=== PATIENT | female | born 1970 | race Caucasian/White ===

== ENCOUNTER 2023-09-22 12:51 | Inpatient (IN) | payer SELFPAY ==
[2023-09-22] VITALS (73 sets, daily range): BP systolic 107–179; BP diastolic 82–143; PULSE 71–112; RESP 13–27; TEMP 36.7–38; O2SAT 97–100; BMI 38.2
--- NOTE | 2023-09-22 12:52 | ECG_ITS ---
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 Measurements Intervals [place] Rate: 105 P: 30 WA: 120 QRS: 31 QRSD: 81 T: 58 QT: 333 QTc: 441 Interpretive Statements SINUS TACHYCARDIA ABNORMAL RHYTHM ECG No previous ECG available for comparison Electronically Signed On 09-22-2023 15:20:37 WEED CONTROL INSPECTOR by Jaylene Finch M.D. [email or web address]
--- NOTE | 2023-09-22 12:52 | XRR_ITS ---
PROCEDURE INFORMATION: Exam: XR Chest Exam date and time: 09/22/2023 1:20 PM Age: 53 years old Clinical indication: Cough; Additional info: Syncope TECHNIQUE: Imaging protocol: Radiologic exam of the chest. Views: 1 view. COMPARISON: No relevant prior studies available. FINDINGS: Lungs: Unremarkable. No consolidation. Pleural spaces: Unremarkable. No pleural effusion. No pneumothorax. Heart/Mediastinum: Unremarkable. No cardiomegaly. Bones/joints: There is asymmetric anterior left 1st rib ossification. XR/XR chest 1V portable [id number] IMPRESSION: No acute findings.
--- NOTE | 2023-09-22 13:06 | ED_ITS ---
HPI - GI Bleed 2 General: Chief complaint: GI Bleed Stated complaint: Syncope Time Seen by Provider: 09/22/23 12:52 Source: patient and EMS Mode of arrival: EMS Limitations: no limitations History of Present Illness: 53-year-old female states that she had b een feeling weak today states that she passed out she is also been having a large amount of black tarry stools. He has no history of GI bleeds no history of peptic ulcer states she has been taking Advil lately due to hip pains. She is not on any blood thinners she does feel very weak and lethargic especially with standing Associated symptoms: Reports malaise and syncope; Denies abdominal pain, chills, fever(s), headache(s), nausea, rash or vomiting Review of Systems 2 Const: Reports: malaise; Denies: fever(s) or chills Eyes: Denies: blurry vision or eye discomfort ENMT: Denies: throat pain or dental pain Card: Reports: syncope; Denies: chest pain Resp: Denies: dyspnea GI: Reports: hematochezia; Denies: abdominal pain, nausea, vomiting or diarrhea Musc: Denies: neck pain or back pain Skin/Breast: Denies: rash Neuro: Denies: headache(s) Physical Exam 2 Const: COMMON NORMALS: patient oriented x3 GENERAL APPEARANCE: ill appearing HENMT: COMMON NORMALS: normocephalic and atraumatic HEAD & SCALP: n ormocephalic and atraumatic Neck/C-Spine: COMMON NORMALS: full ROM and supple Chest: COMMONS NORMALS: normal inspection of the chest and normal palpation of entire chest wall Resp: COMMON NORMALS: normal respiratory effort, No retractions, No use of accessory muscles and clear to auscultation bilaterally AUSCULTATION: clear to auscultation bilaterally Cardio: COMMON NORMALS: regular rhythm and No murmurs present (Cardio) R ATE: tachycardic RHYTHM: regular rhythm GI: COMMON NORMALS: Normal to inspection, nondistended, normoactive bowel sounds present, Soft to palpation, non-tender and no masses PALPATION: Yes Soft to palpation OTHER: Black tarry stool noted Hemoccult positive Extremity: COMMON NORMALS: normal to inspection and full ROM Neuro: COMMON NORMALS: patient oriented x3, moves all extremities and no focal motor deficits Psych: COMMON NORMALS: mental status grossly normal, Normal thought process present and cooperative THOUGHT PROCESS: Normal thought process present Skin: COMMON NORMALS: no rashes or lesions noted and no wounds GENERAL SKIN EXAM: no rashes or lesions noted Course 2 Vital Signs: Vital signs: Vital Signs Temperature 98.7 F 09/22/23 14:38 Pulse Rate 91 09/22/23 14:38 Respiratory Rate 16 09/22/23 14:38 Blood Pressure 149/105 09/22/23 14:38 Pulse Oximetry 99 09/22/23 14:38 Oxygen Delivery Me thod Room Air 09/22/23 13:01 MDM - GI Bleed Medical Decision Making Patient presents here with syncope likely from anemia from a lower GI bleed patient started on Protonix here transfused 2 units of spoke to surgeon along with hospitalist and will admit at this time her vitals here been stable. Medical Records I reviewed the patient's medical records. Lab Data I reviewed the patient's lab results. 09/22/23 13:03 09/22/23 13:03 Radiology Impressions Chest X-Ray 09/22/23 12:52 IMPRESSION: No acute findings. Laboratory Results WBC 21.33 10^3/uL (3.29-11.43) H 09/22/23 13:03 RBC 2.15 10^6/uL (3.85-5.65) L 09/22/23 13:03 Hgb 7.00 g/dL (11.27-16.99) L 09/22/23 13:03 Hct 21.4 % (36-47) L 09/22/23 13:03 MCV 99.5 fl (85-98) H 09/22/23 13:03 MCH 32.6 pg (27-33) 09/22/23 13:03 MCHC 32.7 g/dL (30-55) 09/22/23 13:03 RDW 15.0 % (12.1-15.1) 09/22/23 13:03 Plt Count 453 10^3/cmm (157-399) H 09/22/23 13:03 MPV 9.6 fL (7.4-10.4) 09/22/23 13:03 Neut % (Auto) 67.1 % 09/22/23 13:03 Lymph % (Auto) 21.3 % 09/22/23 13:03 Lea % (Auto) 7.1 % 09/22/23 13:03 Eos % (Auto) 0.5 % 09/22/23 13:03 Baso % (Auto) 0.4 % 09/22/23 13:03 Neut # (Auto) 14.30 10^3/uL (1.8-7.7) H 09/22/23 13:03 Lymph # (Auto) 4.6 10^3/uL (0.8-4.8) 09/22/23 13:03 Lea # (Auto) 1.5 10^3/uL (0.2-0.9) H 09/22/23 13:03 Eos # (Auto) 0.1 10^3/uL (0.0-0.8) 09/22/23 13:03 Baso # (Auto) 0.1 10^3/uL (0.0-0.1) 09/22/23 13:03 Nucleated RBC % (auto) 0.2 % 09/22/23 13:03 Nucleated RBCs # 0.0 /100WBC 09/22/23 13:03 PT 13.80 SECONDS (12.1-14.9) 09/22/23 13:03 INR 1.03 (0.8-1.2) 09/22/23 13:03 Sodium 134 mmol/L (136-145) L 09/22/23 13:03 Potassium 4.4 mmol/L (3.5-5.1) 09/22/23 13:03 Chloride 101 mmol/L (98-107) 09/22/23 13:03 Carbon Dioxide 21 mmol/L (22-29) L 09/22/23 13:03 Anion Gap 16.4 (5-19) 09/22/23 13:03 BUN 32 mg/dL (6-20) H 09/22/23 13:03 Creatinine 0.7 mg/dL (0.5-0.9) 09/22/23 13:03 GFR Calculation 87.9 mL/min (90-130) L 09/22/23 13:03 Glucose 170 mg/dL (65-115) H 09/22/23 13:03 Calculated Osmolality 289 mOsm/kg (285-295) 09/22/23 13:03 Calcium 8.6 mg/dL (8.5-10.5) 09/22/23 13:03 Total Bilirubin 0.2 mg/dL (0.15-1.2) 09/22/23 13:03 AST 17 U/L (0-32) 09/22/23 13:03 ALT 15 U/L (0-33) 09/22/23 13:03 Alkaline Phosphatase 76 U/L (35-105) 09/22/23 13:03 Total Protein 6.0 g/dL (6.6-8.7) L 09/22/23 13:03 Albumin 3.4 g/dL (3.5-5.2) L 09/22/23 13:03 Globulin 2.6 g/dL (1.3-4.6) 09/22/23 13:03 Blood Type AB Positive 09/22/23 13:03 Rho(D) Type Rh positive 09/22/23 13:03 Antibody Screen Negative 09/22/23 13:03 Crossmatch See Detail 09/22/23 13:03 All radiology interpretation(s) finalized by discharge EKG Data EKG 1: I personally reviewed and interpreted this EKG as follows: EKG interpretation date: 09/22/23 EKG interpretation time: 13:09 Interpretation: sinus tach hr [address] or t wave abnormalities qrs 81 qtc 394 Critical Care Time 2 Critical Care Time: Critical Care Time: Yes Total Critical Care Time: 45 Attestation: The high probability of a clinically significant, sudden or life threatening deterioration of the patient's gi system(s) required my full and direct attention, intervention and personal management. The critical care time is as shown. This time is in addition to time spent performing any reported procedures but includes the following: [x] Data and vital sign review and interpretation [x] Patient assessment, examination and intervention [x] Documentation [x] Medication orders and management Discharge Plan Discharge Patient Disposition: Admitted As Inpatient Clinical Impression: Upper gastrointestinal hemorrhage, Syncope Prescriptions: No Action ibuprofen 200 mg Tablet 200 - 600 mg PO Q6H PRN (Reason: Pain) Aleve 220 mg Capsule 440 - 660 mg PO QID PRN (Reason: Pain) Coding Level of Care Code ED [employer] for [place]
[2023-09-22 13:11] LABS: Basophils # 0.1 10^3/uL (0.0-0.1); Basophils % 0.4 %; Eosinophils # 0.1 10^3/uL (0.0-0.8); Eosinophils % 0.5 %; Hematocrit 21.4 % (36-47); Lymphocytes # 4.6 10^3/uL (0.8-4.8); Lymphocytes % 21.3 %; Mean Corpuscular HGB Conc 32.7 g/dL (30-55); Mean Corpuscular Hemoglobin 32.6 pg (27-33); Mean Corpuscular Volume 99.5 fl (85-98); Mean Platelet Volume 9.6 fL (7.4-10.4); Monocytes # 1.5 10^3/uL (0.2-0.9); Monocytes % 7.1 %; Neutrophils % 67.1 %; Nucleated Red Blood Cells % 0.2 %; Platelet Count 453 10^3/cmm (157-399); Red Blood Count 2.15 10^6/uL (3.85-5.65); White Blood Count 21.33 10^3/uL (3.29-11.43)
[2023-09-22 13:22] LABS: INR 1.03 (0.8-1.2)
[2023-09-22 13:27] LABS: Alanine Aminotransferase 15 U/L (0-33); Albumin Level 3.4 g/dL (3.5-5.2); Alkaline Phosphatase 76 U/L (35-105); Blood Urea Nitrogen 32 mg/dL (6-20); Calcium 8.6 mg/dL (8.5-10.5); Carbon Dioxide 21 mmol/L (22-29); Chloride 101 mmol/L (98-107); Globulin 2.6 g/dL (1.3-4.6); Glomerular Filtration Rate 87.9 mL/min (90-130); Glucose 170 mg/dL (65-115); Osmolality Calculated 289 mOsm/kg (285-295); Sodium 134 mmol/L (136-145); Total Bilirubin 0.2 mg/dL (0.15-1.2)
[2023-09-22 13:30] LABS: Anion Gap 16.4 (5-19); Aspartate Amino Transferase 17 U/L (0-32); Potassium 4.4 mmol/L (3.5-5.1)
[2023-09-22] MEDS: sodium chloride 0.9% 1,000 ML 999 ML IV (13:38)
[2023-09-22] MEDS: pantoprazole 40 MG in sodium chloride 0.9% (plus) 100 ML 20 MG IV ×3 (13:42→22:44)
[2023-09-22] MEDS: pantoprazole 40 mg SDV 80 MG IVP (13:42)
--- NOTE | 2023-09-22 14:31 | P.HP_ITS ---
Providers/Chief Complaint 2 Chief Complaint: Syncope History of Present Illness Riya Meek is a 53 year old female with no past medical hx except arthritis of left hip presented to hospital for weakness, dizziness, black tarry stools. She says she has been taking aleve alternated with ibuprofen in last couple of weeks due to hip pain. She did nt have insurance at first but now does and will be f/u with PCP. She had a dark colored BM last night and this AM had an incontinent BM that was black in color with dark maroon blood seen on toilet paper. She was so weak that she could not even walk to her Car. EMS has to bring her into hospital. She has never had anything like this before Patient drinks 1 pint of vodka daily, denies withdrawal seizures or the shakes . Smokes 1 PPD daily, Medications/Allergies Home Medications Medication Instructions Recorded Confirmed Last Taken Type ibuprofen 200 mg tablet 200 - 600 mg PO Q6H PRN Pain 09/22/23 09/22/23 09/21/23 History naproxen sodium 220 mg capsule 440 - 660 mg PO QID PRN Pain 09/22/23 09/22/23 09/22/23 History (Aleve) Allergies Allergy/AdvReac Type Severity Reaction Status Date / Time No Known Allergies Allergy Verified 09/22/23 13:02 Vitals/I&O/Wt Last Vital Signs Temp 98.0 F 09/22/23 13:01 Pulse 110 H 09/22/23 13:01 Resp 16 09/22/23 13:01 BP 107/82 09/22/23 13:01 Pulse Ox 100 09/22/23 13:01 O2 Del Method Room Air 09/22/23 13:01 Weight last 48 hrs Weight 104.326 kg Physical Exam 2 Narrative: NAD, laying in bed, family member at bedside s1, s2 normal GCS 15 abdomen soft, non tender, obese rounded abdomen extremities unremarkable lungs CTA b/l Data 09/23/23 10:14 09/23/23 05:44 A&P Assessment and plan (1) Upper gastrointestinal hemorrhage: (2) Hip pain: (3) Arthritis: Plan #Upper GI #Arthritis - Refrain from using NSAIDS. will place on morphine for pain for now. then switch to hydrocodone after npo status lifted - Protonix drip - EGD in AM - Gen surg consult - Transfuse 2 units PRBC - Check HnH q12H - NS 100 Cc/hr - Place on CIWA protocol - Start nicotine patch 21 g daily - check cbc q12h Full Code Attestations 2 Medical Necessity Statement*: Requires hospitalization for UGI Diagnoses Upper gastrointestinal hemorrhage K92.2 Hip pain M25.559 Arthritis M19.90
--- NOTE | 2023-09-22 18:50 | P.CONIM_ITS ---
Providers/Reason For Consult 2 Consulting Physician/Specialty*: Hospitalist Reason for Consult*: Upper GI bleed Attending Physician: Joellen Stewart MD History of Present Illness History of Present Illness Riya Meek is a 53 year old female who over the last several weeks has been having trouble with her hip. The patient been taking Aleve/ibuprofen. The patient was seen in an outside hospital where they diagnosed her with arthritis. The patient had a single black tarry stool this morning. She then became dizzy and passed out. When she woke up, she had another relatively large black tarry stool. She called her and then became dizzy and was unable to make it to the car and an ambulance was called. The patient had some dizziness. She has had no nausea or vomiting. The patient had no hematemesis. The patient has no history of GI hemorrhage/ulcers. Patient has no history of hemorrhoids. Review of Systems 2 General: Reports: 10 or more systems reviewed and unremarkable except in HPI and below Medications/Allergies Home Medications Medication Instructions Recorded Confirmed Last Taken Type ibuprofen 200 mg tablet 200 - 600 mg PO Q6H PRN Pain 09/22/23 09/22/23 09/21/23 History naproxen sodium 220 mg capsule 440 - 660 mg PO QID PRN Pain 09/22/23 09/22/23 09/22/23 History (Aleve) Allergies Allergy/AdvReac Type Severity Reaction Status Date / Time No Known Allergies Allergy Verified 09/22/23 13:02 Current Medications Generic Name Dose Route Start Last Admin Trade Name Freq PRN Reason Stop Dose Admin Pantoprazole Sodium 40 mg/ 100 mls @ 20 mls/hr 09/22/23 13:15 09/22/23 18:38 Sodium Chloride IV 8 mg/hr .Q5H BHARTI 20 mls/hr Administration 8 MG/HR Sodium Chloride 1,000 mls @ 150 mls/hr 09/22/23 14:45 09/22/23 18:27 Sodium Chloride 0.9% IV Not Given .Q6H40M BHARTI Vitals/I&O/Wt Last Vital Signs Temp 98.4 F 09/22/23 17:09 Pulse 75 09/22/23 17:42 Resp 20 H 09/22/23 17:30 BP 171/102 09/22/23 17:42 Pulse Ox 100 09/22/23 17:42 O2 Del Method Room Air 09/22/23 13:01 09/22/23 09/22/23 09/22/23 06:59 14:59 22:59 Intake Total 1000 / 1000 348.667 / 1348.667 Balance 1000 / 1000 348.667 / 1348.667 Weight last 48 hrs Weight 230 lb Physical Exam 2 Narrative: General: No acute distress HEENT: Is no cephalic atraumatic, pupils equal round reactive to light Lungs: Clear to auscultation and percussion Heart: Regular rate and rhythm, the patient may be somewhat tachycardic. I do not appreciate an S3 or S4. There is no JVD. Abdomen: Morbidly obese, soft, nontender. There is no masses that I can appreciate. The patient does have an umbilical hernia which is easily reducible. The patient has normal active bowel sounds. Rectal: Deferred Extremities: There is no obvious deformities or point tenderness. There is no clubbing cyanosis or edema. The patient has good capillary refill in both hands and feet Neurologic: The patient is awake, alert, oriented x 3. The patient's Mary Coma Scale is 15. The patient moves all 4 extremities without difficulty. The patient sensations intact to light touch throughout. Data 09/22/23 13:03 09/22/23 13:03 A&P Assessment and plan (1) Upper gastrointestinal hemorrhage: This patient been admitted to the hospitalist service. The patient is being transfused. The patient is currently awake and alert. She is hemodynamically stable. The risk and benefits of EGD have been explained to the patient. She seems to understand this explanation and is willing to proceed. Will call the endoscopy lab. Will see if we can get this patient scheduled. Coding Level of Care Code 42315 Diagnoses Upper gastrointestinal hemorrhage K92.2
[2023-09-22 21:43] LABS: Basophils # 0.1 10^3/uL (0.0-0.1); Basophils % 0.5 %; Eosinophils # 0.1 10^3/uL (0.0-0.8); Eosinophils % 0.3 %; Hematocrit 25.8 % (36-47); Lymphocytes # 3.6 10^3/uL (0.8-4.8); Lymphocytes % 20.1 %; Mean Corpuscular HGB Conc 33.7 g/dL (30-55); Mean Corpuscular Hemoglobin 32.2 pg (27-33); Mean Corpuscular Volume 95.6 fl (85-98); Mean Platelet Volume 9.4 fL (7.4-10.4); Monocytes # 1.1 10^3/uL (0.2-0.9); Monocytes % 6.3 %; Neutrophils # 12.33 10^3/uL (1.8-7.7); Neutrophils % 69.4 %; Nucleated Red Blood Cells % 0.2 %; Platelet Count 365 10^3/cmm (157-399); Red Cell Distribution Width 16.2 % (12.1-15.1); White Blood Count 17.75 10^3/uL (3.29-11.43)
[2023-09-22] MEDS: sodium chloride 0.9% 1,000 ML 150 ML IV (22:48)
[2023-09-23] VITALS (34 sets, daily range): BP systolic 117–175; BP diastolic 70–112; PULSE 64–91; RESP 13–24; TEMP 37–37.9; O2SAT 97–100
[2023-09-23] MEDS: pantoprazole 40 MG in sodium chloride 0.9% (plus) 100 ML 20 MG IV ×3 (03:05→16:20)
[2023-09-23] MEDS: sodium chloride 0.9% 1,000 ML 150 ML IV ×2 (04:28→11:37)
[2023-09-23 06:22] LABS: INR 1.02 (0.8-1.2)
[2023-09-23 06:30] LABS: Alanine Aminotransferase 12 U/L (0-33); Alkaline Phosphatase 64 U/L (35-105); Anion Gap 11.8 (5-19); Aspartate Amino Transferase 11 U/L (0-32); Blood Urea Nitrogen 23 mg/dL (6-20); Calcium 8.3 mg/dL (8.5-10.5); Carbon Dioxide 22 mmol/L (22-29); Chloride 110 mmol/L (98-107); Globulin 2.2 g/dL (1.3-4.6); Glucose 92 mg/dL (65-115); Osmolality Calculated 293 mOsm/kg (285-295); Potassium 3.8 mmol/L (3.5-5.1); Sodium 140 mmol/L (136-145); Total Bilirubin 0.7 mg/dL (0.15-1.2); Total Protein 5.2 g/dL (6.6-8.7)
[2023-09-23 06:33] LABS: Basophils # 0.1 10^3/uL (0.0-0.1); Basophils % 0.5 %; Eosinophils # 0.2 10^3/uL (0.0-0.8); Hematocrit 22.1 % (36-47); Lymphocytes # 3.6 10^3/uL (0.8-4.8); Lymphocytes % 24.9 %; Mean Corpuscular HGB Conc 34.4 g/dL (30-55); Mean Corpuscular Hemoglobin 32.9 pg (27-33); Mean Corpuscular Volume 95.7 fl (85-98); Mean Platelet Volume 9.9 fL (7.4-10.4); Monocytes % 6.6 %; Neutrophils # 9.29 10^3/uL (1.8-7.7); Neutrophils % 63.8 %; Nucleated Red Blood Cells % 0.2 %; Platelet Count 355 10^3/cmm (157-399); Red Blood Count 2.31 10^6/uL (3.85-5.65); Red Cell Distribution Width 17.1 % (12.1-15.1); White Blood Count 14.55 10^3/uL (3.29-11.43)
[2023-09-23] MEDS: morphine 4 mg/mL SDV 1 mL 2 MG IVP ×2 (08:21→18:20)
[2023-09-23 10:43] LABS: Basophils # 0.1 10^3/uL (0.0-0.1); Basophils % 0.4 %; Eosinophils # 0.1 10^3/uL (0.0-0.8); Hematocrit 23.1 % (36-47); Lymphocytes # 3.8 10^3/uL (0.8-4.8); Lymphocytes % 26.2 %; Mean Corpuscular HGB Conc 32.9 g/dL (30-55); Mean Corpuscular Hemoglobin 32.5 pg (27-33); Mean Corpuscular Volume 98.7 fl (85-98); Mean Platelet Volume 9.4 fL (7.4-10.4); Monocytes # 0.9 10^3/uL (0.2-0.9); Monocytes % 6.1 %; Neutrophils # 9.07 10^3/uL (1.8-7.7); Neutrophils % 63.5 %; Nucleated Red Blood Cells % 0.1 %; Platelet Count 347 10^3/cmm (157-399); Red Blood Count 2.34 10^6/uL (3.85-5.65); Red Cell Distribution Width 17.4 % (12.1-15.1); White Blood Count 14.29 10^3/uL (3.29-11.43)
--- NOTE | 2023-09-23 11:46 | P.ANESASSM_ITS ---
Pre-Anesthetic Assessment Height/Weight: Height 1.65 m Weight 104.78 kg Temp Pulse Resp BP Pulse Ox O2 Del Method 99.0 F 72 13 149/73 100 Room Air 09/23/23 08:00 09/23/23 10:00 09/23/23 10:00 09/23/23 10:00 09/23/23 10:00 09/23/23 10:00 Preop Diagnosis: upper GI hemorrhage Operation Date: 09/23/23 11:25 Proposed Procedures p EGD(Not Applicable) - Marybeth Barajas MD Was Beta [place] taken within 24 hours: N/A Was Clonidine taken within 24 hours: N/A Last intake: Intake Last Liquid Date 09/22/23 Last Liquid Time 08:00 Last Solid Date 09/21/23 Last Solid Time 15:00 Social Alcohol (1 pint of vodka daily) and Tobacco 1/2-1 daily pack(s) per day 40 pack years Exam alert, oriented x 3 and regular rate & rhythm Airway Submandibular: within normal limits Cervical ROM: within normal limits Mallampati: Class II Dentition: chipped History/ROS No significant history except as noted Pulmonary Chronic Obstructive Pulmonary Disease and Cough CV/HEM None reported None reported Hepatic None reported GI None reported Metabolic Morbid Obesity [facility] Osteoarthritis/DJD Neuropsych None reported Anesthetic Plan ASA status: 2 Anesthesia: Anesthesia Evaluation and MAC Medications/Allergies Home Medications Medication Instructions Recorded Confirmed Last Taken Type ibuprofen 200 mg tablet 200 - 600 mg PO Q6H PRN Pain 09/22/23 09/22/23 09/21/23 History naproxen sodium 220 mg capsule 440 - 660 mg PO QID PRN Pain 09/22/23 09/22/23 09/22/23 History (Aleve) Allergies Allergy/AdvReac Type Severity Reaction Status Date / Time No Known Allergies Allergy Verified 09/22/23 13:02 Current Medications Generic Name Dose Route Start Last Admin Trade Name Freq PRN Reason Stop Dose Admin Folic Acid 1 mg 09/23/23 09:00 09/23/23 08:21 Folic Acid 1 Mg Tablet PO Not Given DAILY BHARTI Pantoprazole Sodium 40 mg/ 100 mls @ 20 mls/hr 09/22/23 13:15 09/23/23 09:23 Sodium Chloride IV 8 mg/hr .Q5H BHARTI 20 mls/hr Administration 8 MG/HR Sodium Chloride 1,000 mls @ 150 mls/hr 09/22/23 14:45 09/23/23 11:37 Sodium Chloride 0.9% IV 150 mls/hr .Q6H40M BHARTI Administration Multivitamins Therapeutic 1 tab 09/23/23 09:00 09/23/23 08:21 Multivitamin Therapeutic Tablet PO Not Given DAILY BHARTI Thiamine Mononitrate 100 mg 09/23/23 09:00 09/23/23 08:21 Thiamine 100 Mg Tablet PO Not Given DAILY BHARTI Data Anesthesia 09/23/23 10:14 09/23/23 05:44 Short CBC 09/22/23 09/22/23 09/23/23 Range/Units 13:03 21:36 05:44 WBC 21.33 H 17.75 H 14.55 H (3.29-11.43) 10^3/uL Hgb 7.00 L 8.70 L 7.60 L (11.27-16.99) g/dL Hct 21.4 L 25.8 L 22.1 L (36-47) % MCV 99.5 H 95.6 95.7 (85-98) fl Plt Count 453 H 365 355 (157-399) 10^3/cmm Neut % (Auto) 67.1 69.4 63.8 % Neut # (Auto) 14.30 H 12.33 H 9.29 H (1.8-7.7) 10^3/uL 09/23/23 Range/Units 10:14 WBC 14.29 H (3.29-11.43) 10^3/uL Hgb 7.60 L (11.27-16.99) g/dL Hct 23.1 L (36-47) % MCV 98.7 H (85-98) fl Plt Count 347 (157-399) 10^3/cmm Neut % (Auto) 63.5 % Neut # (Auto) 9.07 H (1.8-7.7) 10^3/uL BMP 09/22/23 09/23/23 13:03 05:44 Sodium 134 L 140 Potassium 4.4 3.8 Chloride 101 110 H Carbon Dioxide 21 L 22 BUN 32 H 23 H Creatinine 0.7 0.6 Glucose 170 H 92 Calcium 8.6 8.3 L Liver Function 09/22/23 09/23/23 Range/Units 13:03 05:44 Total Bilirubin 0.2 0.7 (0.15-1.2) mg/dL AST 17 11 (0-32) U/L ALT 15 12 (0-33) U/L Alkaline Phosphatase 76 64 (35-105) U/L Albumin 3.4 L 3.0 L (3.5-5.2) g/dL Blood Bank 09/22/23 13:03 Blood Type AB Positive Rho(D) Type Rh positive Antibody Screen Negative Coags 09/22/23 09/23/23 13:03 05:44 PT 13.80 13.70 INR 1.03 1.02 Cardiac Studies: 2 No Data to Display
[2023-09-23] MEDS: sodium chloride 0.9% 1,000 ML 30 ML IV (12:06)
--- NOTE | 2023-09-23 12:23 | P.PN_ITS ---
Subjective 2 Subjective: 2 prepyloric ulcers were found. No biops ies taken. Medications: Reviewed: Yes Vitals/I&O/Wt Last Vital Signs Temp 99.0 F 09/23/23 08:00 Pulse 72 09/23/23 10:00 Resp 13 09/23/23 10:00 BP 149/73 09/23/23 10:00 Pulse Ox 100 09/23/23 10:00 O2 Del Method Room Air 09/23/23 10:00 09/22/23 09/23/23 09/23/23 22:59 06:59 14:59 Intake Total 830.667 / 1830.667 955.333 / 2786.000 1081.667 / 1081.667 Output Total 300 / 300 825 / 1125 400 / 400 Balance 530.667 / 1530.667 130.333 / 1661.000 681.667 / 681.667 Weight last 48 hrs Weight 231 lb Weight 230 lb Weight 230 lb Physical Exam 2 Narrative: abd - benign Data 09/23/23 10:14 09/23/23 05:44 A&P Assessment and plan (1) Upper gastrointestinal hemorrhage: would treat ulcers for 6 - 8 weeks. Would schedule repeat EDG in 6 - 8 weeks. Will sign off. Please reconsult for questions or concerns. Attestations 2 Medical Necessity Statement*: see hospitalist note Coding Level of Care Code Acute Code for Chg Fwd Diagnoses Upper gastrointestinal hemorrhage K92.2
--- NOTE | 2023-09-23 14:34 | ANE.PACU2 ---
Inpatient post-anesthesia follow up: Airway intact: Yes Vital signs: Temperature 99.0 F Pulse Rate 72 Respiratory Rate 13 Blood Pressure 149/73 Pulse Oximetry 100 Oxygen Delivery Me thod Room Air Oxygen Flow Rate Fraction of Inspir ed Oxygen Hydration adequate: Yes Nausea and vomiting: No Pain level: 2 Mental status: Baseline
--- NOTE | 2023-09-23 14:35 | P.PN_ITS ---
Subjective 2 Subjective: seen this am egd at 1.30 pm today pt doing ok no more melena noted as per her Vitals/I&O/Wt Last Vital Signs Temp 99.0 F 09/23/23 08:00 Pulse 72 09/23/23 10:00 Resp 13 09/23/23 10:00 BP 149/73 09/23/23 10:00 Pulse Ox 100 09/23/23 10:00 O2 Del Method Room Air 09/23/23 10:00 09/22/23 09/23/23 09/23/23 22:59 06:59 14:59 Intake Total 830.667 / 1830.667 955.333 / 2786.000 1716.667 / 1716.667 Output Total 300 / 300 825 / 1125 400 / 400 Balance 530.667 / 1530.667 130.333 / 0065.052 3995.667 / 1316.667 Weight last 48 hrs Weight 104.78 kg Weight 104.326 kg Weight 104.326 kg Physical Exam 2 Narrative: NAD, laying in bed, family member at bedside s1, s2 normal abdomen soft, non tender, obese rounded abdomen extremities unremarkable lungs CTA b/l Data 09/23/23 10:14 09/23/23 05:44 A&P Assessment and plan (1) Upper gastrointestinal hemorrhage: (2) Hip pain: (3) Arthritis: Plan #Upper GI #Arthritis - Refrain from using NSAIDS. will place on morphine for pain for now. then switch to hydrocodone after npo status lifted - Protonix drip - EGD at 1.30 today - Gen surg consult - pt s/p 2 units PRBC - Check HnH q12H - NS 100 Cc/hr - Place on CIWA protocol - Start nicotine patch 21 g daily - hip CT once stable Full Code Attestations 2 Medical Necessity Statement*: UGI Diagnoses Upper gastrointestinal hemorrhage K92.2 Hip pain M25.559 Arthritis M19.90
[2023-09-23] MEDS: HYDROcodone-acetaminophen 5-325 mg Tablet 1 TAB PO ×2 (14:38→22:15)
--- NOTE | 2023-09-23 18:45 | PC.NURSE ---
Late note: patient come back from GI lab at approximately 1220. Patient is alert and oriented to person, place, time, and situation. BP: 123/79, HR: 100, SPO2: 100%, temp: 98.5. 2 pyloric ulcers identified.. No other interventions.
--- NOTE | 2023-09-23 18:47 | PC.NURSE ---
Shift SUmmary: uneventful shift. Patient has rested in bed for most of the day. Was up to achair for about 2 hours but had to go back to bed due to hip pain. Went to GI lab this morning and 2 pyloric ulcers were identified with no other interventions performed. Diet has been advanced to GI soft. COntinues to be on the protonix drip. Patient has had complaints of arthritic pain which was previosuly treated with NSAIDS but we are not using opiods. Patient has concerns about not being able to use nsaids anymore, which provided her adequate pain relief, and switching to potentially habit forming opiods.
[2023-09-23] MEDS: pantoprazole 40 mg SDV IVP (20:52)
[2023-09-23] MEDS: sodium chloride 0.9% 1,000 ML 100 ML IV (20:53)
[2023-09-23] MEDS: sucralfate 1 gm/10 mL Oral Liq UDC PO (20:54)
[2023-09-24] VITALS (32 sets, daily range): BP systolic 117–164; BP diastolic 57–103; PULSE 62–90; RESP 13–24; TEMP 36.6–37.3; O2SAT 95–100
--- NOTE | 2023-09-24 05:46 | PC.NURSE ---
Pt reporting 8/[address] Butt notified. Order to give Hydrocodone PO 1 tab early. Notified him of foul smelling urine, order for a urine sample to be sent to lab.
[2023-09-24 05:50] LABS: Basophils # 0.1 10^3/uL (0.0-0.1); Basophils % 0.5 %; Eosinophils # 0.3 10^3/uL (0.0-0.8); Eosinophils % 2.3 %; Hematocrit 21.8 % (36-47); Lymphocytes # 3.3 10^3/uL (0.8-4.8); Lymphocytes % 24.3 %; Mean Corpuscular Hemoglobin 32.9 pg (27-33); Mean Corpuscular Volume 99.5 fl (85-98); Mean Platelet Volume 9.6 fL (7.4-10.4); Monocytes # 0.8 10^3/uL (0.2-0.9); Monocytes % 6.1 %; Neutrophils # 8.68 10^3/uL (1.8-7.7); Neutrophils % 64.8 %; Nucleated Red Blood Cells % 0 %; Platelet Count 343 10^3/cmm (157-399); Red Blood Count 2.19 10^6/uL (3.85-5.65); Red Cell Distribution Width 17.1 % (12.1-15.1); White Blood Count 13.41 10^3/uL (3.29-11.43)
[2023-09-24] MEDS: HYDROcodone-acetaminophen 5-325 mg Tablet 1 TAB PO ×2 (05:50→13:21)
[2023-09-24] MEDS: sucralfate 1 gm/10 mL Oral Liq UDC PO ×3 (05:51→16:57)
[2023-09-24 06:09] LABS: Alanine Aminotransferase 15 U/L (0-33); Albumin Level 3.1 g/dL (3.5-5.2); Alkaline Phosphatase 63 U/L (35-105); Anion Gap 11.7 (5-19); Aspartate Amino Transferase 15 U/L (0-32); Blood Urea Nitrogen 11 mg/dL (6-20); Calcium 8.4 mg/dL (8.5-10.5); Carbon Dioxide 22 mmol/L (22-29); Chloride 111 mmol/L (98-107); Globulin 2.3 g/dL (1.3-4.6); Glucose 93 mg/dL (65-115); Osmolality Calculated 291 mOsm/kg (285-295); Potassium 3.7 mmol/L (3.5-5.1); Sodium 141 mmol/L (136-145); Total Bilirubin 0.4 mg/dL (0.15-1.2); Total Protein 5.4 g/dL (6.6-8.7)
--- NOTE | 2023-09-24 08:05 | PM.PN ---
Vitals/I&O/Wt Last Vital Signs Temp 98.2 F 09/24/23 03:49 Pulse 66 09/24/23 06:00 Resp 16 09/24/23 06:00 BP 151/92 09/24/23 06:00 Pulse Ox 100 09/24/23 06:00 O2 Del Method Room Air 09/24/23 06:00 09/23/23 09/24/23 09/24/23 22:59 06:59 14:59 Intake Total 886.667 / 2703.334 400 / 3103.334 Output Total 400 / 800 1025 / 1825 Balance 486.667 / 1903.334 -625 / 1278.334 Weight last 48 hrs Weight 107.774 kg Weight 104.78 kg Weight 104.326 kg Weight 104.326 kg Data 09/24/23 05:19 09/24/23 05:19 Coding Level of Care Code Acute Code for Chg Fwd
[2023-09-24] MEDS: pantoprazole 40 mg SDV IVP (08:12)
[2023-09-24] MEDS: cefTRIAXone 1,000 MG in sodium chloride 0.9% (plus) 50 ML 100 MG IV (08:12)
[2023-09-24] MEDS: sodium chloride 0.9% 1,000 ML 100 ML IV (08:13)
[2023-09-24] MEDS: folic acid 1 mg Tablet PO (08:13)
[2023-09-24] MEDS: multivitamin therapeutic Tablet 1 TAB PO (08:13)
[2023-09-24] MEDS: thiamine 100 mg Tablet PO (08:13)
[2023-09-24 08:50] LABS: Add Urine Microscopic? YES; Bilirubin Urine Neg (Negative); Blood Urine Neg (Negative); Glucose Urine UA Norm (Normal); Ketones Urine Negative (Negative); Leukocyte Esterase Urine 2+ (Negative); Nitrate Urine Negative (Negative); Protein Urine Neg (Negative); Specific Gravity, Urine 1.005 (1.005-1.030); Urine Appearance Cloudy (CLEAR); Urine Color Straw (Yellow); Urobilinogen Urine Norm (Negative); pH Urine 6 (5-7)
[2023-09-24 08:51] LABS: Add Urine Culture? Yes; Bacteria Urine 2+ /hpf; RBC Urine 0-4 /hpf (0-2); Squamous Epithelial Cell Urine 0-4 /hpf (0-5)
--- NOTE | 2023-09-24 13:34 | CT_ITS ---
WS: [id number] Noncontrast CT LEFT hip TECHNIQUE: Noncontrast CT LEFT hip with coronal and sagittal reformatted images. CLINICAL INFORMATION: left hip pain COMPARISON: None. DLP: 1169.[address] scans at [facility] use at least one of these dose optimization techniques: automated e xposure control; mA and/or kV adjustment per patient size (includes targeted exams where dose is matc hed to clinical indication); or iterative reconstruction. FINDINGS: Normal anatomic alignment. No acute fractures. Normal femoral head and neck. Proximal femoral shaft a ppears normal. Mild degenerative narrowing LEFT hip. Mild subchondral cystic change involving the zahraa tabulum. No significant joint effusion. Partially visualized sigmoid diverticulosis. IMPRESSION: No acute LEFT hip findings
--- NOTE | 2023-09-24 13:37 | PM.DCS ---
Discharge Providers Date of Admission: 09/22/23 17:09 Date of Discharge: September 24, 2023 Attending Provider at Admission: Joellen Stewart MD Attending Provider at Discharge: Joellen Stewart MD Diagnoses at Discharge Discharge Diagnosis (1) Upper gastrointestinal hemorrhage: Status: Acute (2) Hip pain: Status: Acute (3) Arthritis: Status: Acute Reason for Visit Reason for Visit: Syncope Brief History: Riya Meek is a 53 year old female with no past medical hx except arthritis of left hip presented to hospital for weakness, dizziness, black tarry stools. She says she has been taking aleve alternated with ibuprofen in last couple of weeks due to hip pain. She did nt have insurance at first but now does and will be f/u with PCP. She had a dark colored BM last night and this AM had an incontinent BM that was black in color with dark maroon blood seen on toilet paper. She was so weak that she could not even walk to her Car. EMS has to bring her into hospital. She has never had anything like this before Patient drinks 1 pint of vodka daily, denies withdrawal seizures or the shakes . Smokes 1 PPD daily, Hospital Course Hospital Course Patient came in for upper GI bleed with melena. She was taking Aleve and ibuprofen alternating for left hip pain for the last couple of weeks. She says she has been having left hip pain. She had an endoscopy done and 2 prepyloric ulcers were found. No biopsies were obtained. Patient was kept on a Protonix drip during hospital stay. She was transition to Protonix 40 twice daily and sucralfate at discharge. Hip CT was obtained. She will be given a referral to orthopedic surgery as an outpatient and she is to follow-up with general surgery for repeat endoscopy in 6 to 8 weeks. We will give her prescription for hydrocodone for pain until she is seen by PCP. She already has nicotine patches at home. She says she has not smoked in 3 days and is possibly trying to quit at this point now. Patient was discharged home in stable condition. During hospital stay she did receive 2 units of packed RBCs hemoglobin has been stable at 7.6. Physical Exam Narrative: NAD, laying in bed, family member at bedside s1, s2 normal abdomen soft, non tender, obese rounded abdomen extremities unremarkable lungs CTA b/l Discharge Data Studies Completed and Pending Completed Studies During Hospitalization Category Date Time Status XR chest 1V portable [id number] Stat Exams 09/22/23 12:52 Completed Pending at discharge Category Date Time Status CT hip LT wo con* [id number] Urgent Cat Scan 09/24/23 13:34 Ordered Complete Blood Count w/Auto DAILY Lab 09/25/23 10:00 Ordered Comprehensive Metabolic Panel AM LABS Lab 09/25/23 04:00 Ordered Urine Culture Routine Lab 09/24/23 07:25 Received Radiology Impressions Chest X-Ray 09/22/23 12:52 IMPRESSION: No acute findings. Laboratory Results WBC 13.41 10^3/uL (3.29-11.43) H 09/24/23 05:19 RBC 2.19 10^6/uL (3.85-5.65) L 09/24/23 05:19 Hgb 7.20 g/dL (11.27-16.99) L 09/24/23 05:19 Hct 21.8 % (36-47) L 09/24/23 05:19 MCV 99.5 fl (85-98) H 09/24/23 05:19 MCH 32.9 pg (27-33) 09/24/23 05:19 MCHC 33.0 g/dL (30-55) 09/24/23 05:19 RDW 17.1 % (12.1-15.1) H 09/24/23 05:19 Plt Count 343 10^3/cmm (157-399) 09/24/23 05:19 MPV 9.6 fL (7.4-10.4) 09/24/23 05:19 Neut % (Auto) 64.8 % 09/24/23 05:19 Lymph % (Auto) 24.3 % 09/24/23 05:19 [place] % (Auto) 6.1 % 09/24/23 05:19 Eos % (Auto) 2.3 % 09/24/23 05:19 Baso % (Auto) 0.5 % 09/24/23 05:19 Neut # (Auto) 8.68 10^3/uL (1.8-7.7) H 09/24/23 05:19 Lymph # (Auto) 3.3 10^3/uL (0.8-4.8) 09/24/23 05:19 [place] # (Auto) 0.8 10^3/uL (0.2-0.9) 09/24/23 05:19 Eos # (Auto) 0.3 10^3/uL (0.0-0.8) 09/24/23 05:19 Baso # (Auto) 0.1 10^3/uL (0.0-0.1) 09/24/23 05:19 Nucleated RBC % (auto) 0 % 09/24/23 05:19 Nucleated RBCs # 0.0 /100WBC 09/24/23 05:19 PT 13.70 SECONDS (12.1-14.9) 09/23/23 05:44 INR 1.02 (0.8-1.2) 09/23/23 05:44 Sodium 141 mmol/L (136-145) 09/24/23 05:19 Potassium 3.7 mmol/L (3.5-5.1) 09/24/23 05:19 Chloride 111 mmol/L (98-107) H 09/24/23 05:19 Carbon Dioxide 22 mmol/L (22-29) 09/24/23 05:19 Anion Gap 11.7 (5-19) 09/24/23 05:19 BUN 11 mg/dL (6-20) 09/24/23 05:19 Creatinine 0.6 mg/dL (0.5-0.9) 09/24/23 05:19 GFR Calculation 105.0 mL/min (90-130) 09/24/23 05:19 Glucose 93 mg/dL (65-115) 09/24/23 05:19 Calculated Osmolality 291 mOsm/kg (285-295) 09/24/23 05:19 Calcium 8.4 mg/dL (8.5-10.5) L 09/24/23 05:19 Total Bilirubin 0.4 mg/dL (0.15-1.2) 09/24/23 05:19 AST 15 U/L (0-32) 09/24/23 05:19 ALT 15 U/L (0-33) 09/24/23 05:19 Alkaline Phosphatase 63 U/L (35-105) 09/24/23 05:19 Total Protein 5.4 g/dL (6.6-8.7) L 09/24/23 05:19 Albumin 3.1 g/dL (3.5-5.2) L 09/24/23 05:19 Globulin 2.3 g/dL (1.3-4.6) 09/24/23 05:19 Urine Color Straw (Yellow) 09/24/23 07:25 Urine Appearance Cloudy (CLEAR) A 09/24/23 07:25 Urine pH 6 (5-7) 09/24/23 07:25 Ur Specific [place] 1.005 (1.005-1.030) 09/24/23 07:25 Urine Protein Neg (Negative) 09/24/23 07:25 Urine Glucose (UA) Norm (Normal) 09/24/23 07:25 Urine Ketones Negative (Negative) 09/24/23 07:25 Urine Blood Neg (Negative) 09/24/23 07:25 Urine Nitrate Negative (Negative) 09/24/23 07:25 Urine Bilirubin Neg (Negative) 09/24/23 07:25 Urine Urobilinogen Norm mg/dL (Negative) 09/24/23 07:25 Ur Leukocyte Esterase 2+ (Negative) H 09/24/23 07:25 Urine RBC 0-4 /hpf (0-2) H 09/24/23 07:25 Urine WBC 5-10 /hpf (0-5) H 09/24/23 07:25 Ur Squamous Epith Cells 0-4 /hpf (0-5) H 09/24/23 07:25 Amorphous Sediment Not Reportable 09/24/23 07:25 Urine Bacteria 2+ /hpf (NONE) H 09/24/23 07:25 Blood Type AB Positive 09/22/23 13:03 Rho(D) Type Rh positive 09/22/23 13:03 Antibody Screen Negative 09/22/23 13:03 Crossmatch See Detail 09/22/23 13:03 Vitals Last Vital Signs Temp 98.7 F 09/24/23 08:00 Pulse 72 09/24/23 10:00 Resp 17 09/24/23 10:00 BP 157/82 09/24/23 10:00 Pulse Ox 99 09/24/23 10:00 O2 Del Method Room Air 09/24/23 10:00 Discharge Plan Discharge Patient Disposition: Home Condition: Stable Prescriptions: New sucralfate 100 mg/mL Suspension 1 g PO AC&BEDTIME 30 Days Qty: 500 0RF folic acid 1 mg Tablet 1 mg PO DAILY Qty: 30 0RF Vitamin B-1 (mononitrate) 100 mg Tablet 100 mg PO DAILY Qty: 30 0RF Thera 400 mcg Tablet 1 tab PO DAILY Qty: 30 0RF Protonix 40 mg tablet,delayed release (DR/EC) 40 mg PO BID 42 Days Qty: 84 0RF hydrocodone-acetaminophen 5-325 mg Tablet 1 tab PO Q8H PRN (Reason: Moderate Pain) Qty: 14 0RF Discontinued ibuprofen 200 mg Tablet 200 - 600 mg PO Q6H PRN (Reason: Pain) naproxen sodium [Aleve] 220 mg Capsule 440 - 660 mg PO QID PRN (Reason: Pain) Discharge Orders: Discharge Order (Routine); Ordered 09/24/23 Ordered By: Joellen Stewart Other Ambulatory Orders: Complete Blood Count w/Auto (Routine) Timeframe: 1 Week Location: Determined by Patient Ordered By: Joellen Stewart Referrals: Hermilo Caro DO [Physician] - 6 Weeks (We have notified your physician's clinic of the need for a follow-up appointment to be scheduled. If you have not heard from them within the next 2 business days, please call them directly. ) Thiago Boothe DO [Physician] - 2 weeks (We have notified your physician's clinic of the need for a follow-up appointment to be scheduled. If you have not heard from them within the next 2 business days, please call them directly. ) Deena Qiu FNP [Referring] - 10/07/23 9:15 am Discharge Diet: GI Soft Discharge Activity: Resume usual activity Patient Instructions: Gastrointestinal Bleeding (DC), Hip Pain (GEN), GI Discharge Instructions, Opioid Safety Activity Restrictions/Additional Instructions: Please do not take ibuprofen or Aleve, aspirin or any other NSAID related products. Return to ER if you develop further bloody bowel movements, including but not limited to weakness, passing out or low blood pressure. Discharge Attestations Time Spent in Discharge Care*: greater than 30 min Quality Metrics Clinical Quality Measures [ No reported AMI, CVA or VTE this stay] Coding Level of Care Code Acute Code for Chg Fwd Diagnoses Upper gastrointestinal hemorrhage K92.2 Hip pain M25.559 Arthritis M19.90
--- NOTE | 2023-09-24 14:04 | PC.NURSE ---
Pt to CT for her left hip.
[2023-09-24] MEDS: sodium chloride 0.9% 100 mL Bag 50 ML IV (15:45)
--- NOTE | 2023-09-24 15:52 | PC.NURSE ---
Transfusion started, pt tolerating well. SEE Vital sign flowsheet for further vital signs.
--- NOTE | 2023-09-24 18:59 | PC.NURSE ---
Pt just discharge. No bloody stools or emesis noted tis shift. HEr HGb was low she did received one unit of PRBCs. No other issues this shift. Hip CT completed.
== END 2023-09-24 18:54 | disposition home or self-care (01) | DRG 379 ==
LOC: ER 16:07 → ICU 17:15
PROVIDERS: Internal Medicine; Surgery Surgical Critical Care; Admitting Provider Internal Medicine; Emergency Provider Emergency Medicine; Visit Provider Internal Medicine
PROC: 0DJ08ZZ Inspection of Upper Intestinal Tract, Via Natural or Artificial Opening Endoscopic (ICD-10-PCS; CPT 43235; principal; 2023-09-23 11:25)
DX: K25.0 Acute gastric ulcer with hemorrhage (principal); D64.9 Anemia, unspecified; F17.210 Nicotine dependence, cigarettes, uncomplicated; M16.12 Unilateral primary osteoarthritis, left hip
CPT/HCPCS: 36415; 36430; 43235; 71045; 73700; 80053; 81001; 85025; 85610; 86850; 86900; 86920; 87077; 87086; 87186; 93005; 96365; 96366; 96372; 96375; 99291; C9113; J0696; J2270; J2704; J3411; J7030; P9016; P9040

== ENCOUNTER → 2023-10-12 14:36 | Outpatient (BNVA) | payer OTHER, SELFPAY | PROVIDERS: PCP Family Medicine; Visit Provider Nurse Practitioner Family | DX: R42 Dizziness and giddiness (principal); R55 Syncope and collapse; I95.9 Hypotension, unspecified | CPT/HCPCS: 82962; 85018 ==

== ENCOUNTER → 2023-11-29 09:36 | Outpatient (BNVA) | payer OTHER, SELFPAY | PROVIDERS: PCP Family Medicine; Referring Provider Nurse Practitioner Family; Visit Provider Specialist | DX: M25.552 Pain in left hip | CPT/HCPCS: 73502 ==

== ENCOUNTER 2023-12-08 06:01 | Day surgery (SDC) | payer OTHER, SELFPAY ==
[2023-12-08 06:14] VITALS: BMI 36.8
[2023-12-08 06:19] LABS: OR HCG Qualitative Urine Negative (Negative)
[2023-12-08 06:22] VITALS: BP 155/97; PULSE 92; RESP 18; TEMP 36.3; O2SAT 100
--- NOTE | 2023-12-08 06:26 | ANES.PREANE2 ---
Pre-Anesthetic Assessment Height/Weight: Height 1.7 m Weight 106.594 kg Temp Pulse Resp BP Pulse Ox O2 Del Method 97.4 F L 92 18 155/97 100 Room Air 12/08/23 06:22 12/08/23 06:22 12/08/23 06:22 12/08/23 06:22 12/08/23 06:22 12/08/23 06:22 Operation Date: 12/08/23 07:30 Proposed Procedures p [id number] egd [id number] colon G0105 screen colon H risk K25.9, Z12.11, R19.7,K42.9(Not Applicable) - Hermilo Caro DO s Colonoscopy(Not Applicable) - Hermilo Caro DO Familial anesthetic complications: None Was Beta [place] taken within 24 hours: N/A Was Clonidine taken within 24 hours: N/A Last intake: Intake Last Liquid Date 12/07/23 Last Liquid Time 22:00 Last Solid Date 12/07/23 Last Solid Time 06:00 Social Alcohol (Cocktail in the evening) and Tobacco 0.5 pack(s) per day 30 pack years Exam alert, oriented x 3, clear to auscultation bilaterally and regular rate & rhythm Airway Submandibular: within normal limits Cervical ROM: within normal limits Mallampati: Class II Dentition: chipped and false History/ROS No significant history except as noted and No significant complaints Pulmonary Cough CV/HEM Anemia, Coronary Artery Disease and Hypertension None reported Hepatic None reported GI Hiatal Hernia and Peptic Ulcer Disease Metabolic Morbid Obesity Musc/skel Lower Back Pain and Osteoarthritis/DJD Neuropsych Neuropathy Anesthetic Plan ASA status: 3 Anesthesia: Anesthesia Evaluation, General and MAC Risk of > 500 ml blood loss (7ml/kg in children): No Medications/Allergies Home Medications Medication Instructions Recorded Confirmed Last Taken Type folic acid 1 mg tablet 1 mg PO DAILY #30 tabs 09/24/23 12/08/23 12/07/23 Rx multivitamin with folic acid 400 1 tab PO DAILY #30 tabs 09/24/23 12/08/23 12/07/23 Rx mcg tablet (Thera) thiamine mononitrate (vit B1) 100 100 mg PO DAILY #30 tabs 09/24/23 12/06/23 Unknown Rx mg tablet (Vitamin B-1 (mononitrate)) pantoprazole 40 mg tablet,delayed 40 mg PO BID 6 weeks #84 tabs 11/22/23 12/08/23 12/07/23 Rx release (Protonix) sucralfate 1 gram tablet 1 g PO QID 12/06/23 12/08/23 12/07/23 History Allergies Allergy/AdvReac Type Severity Reaction Status Date / Time No Known Allergies Allergy Verified 12/06/23 09:19 PFSH Anesthesia Female Reproductive History Date of last menstrual period: 11/08/23 Data Anesthesia Cardiac Studies: No Data to Display
[2023-12-08] MEDS: sodium chloride 0.9% 1,000 ML 30 ML IV (06:31)
--- NOTE | 2023-12-08 06:57 | W.PM.OPSUD ---
Surgery/Procedure H&P Update DATE OF PROCEDURE: December 08, 2023 DATE H&P PERFORMED: 11/22/23 H&P UPDATE INFORMATION: I have reviewed H&P completed within last 30 days, I have examined patient prior to procedure and No changes to prior documentation PLANNED PROCEDURE: Operation Date: 12/08/23 07:30 Proposed Procedures p [id number] egd [id number] colon G0105 screen colon H risk K25.9, Z12.11, R19.7,K42.9(Not Applicable) - DO milagros Thornton Colonoscopy(Not Applicable) - Hermilo Caro DO
[2023-12-08 07:35] VITALS: BP 128/78; PULSE 74; RESP 14; TEMP 36.1; O2SAT 97
[2023-12-08 07:50] VITALS: BP 110/73; PULSE 68; RESP 18; O2SAT 100
--- NOTE | 2023-12-08 14:54 | ANE.PACU2 ---
Inpatient post-anesthesia follow up: Vital signs: Temperature 97 F Pulse Rate 68 Respiratory Rate 18 Blood Pressure 110/73 Pulse Oximetry 100 Oxygen Delivery Me thod Room Air Oxygen Flow Rate Fraction of Inspir ed Oxygen Additional Comments: no apparent anesthetic complications noted
== END 2023-12-08 08:07 | disposition home or self-care (01) ==
PROVIDERS: PCP Nurse Practitioner Family; Visit Provider Surgery
PROC: 0DJ08ZZ Inspection of Upper Intestinal Tract, Via Natural or Artificial Opening Endoscopic (ICD-10-PCS; CPT 43235; principal; 2023-12-08 07:30)
PROC: 0DJD8ZZ Inspection of Lower Intestinal Tract, Via Natural or Artificial Opening Endoscopic (ICD-10-PCS; CPT 45378; 2023-12-08 07:30)
DX: R19.7 Diarrhea, unspecified (principal); K92.1 Melena; K25.9 Gastric ulcer, unspecified as acute or chronic, without hemorrhage or perforation; K42.9 Umbilical hernia without obstruction or gangrene; K29.50 Unspecified chronic gastritis without bleeding; D12.5 Benign neoplasm of sigmoid colon; K57.30 Diverticulosis of large intestine without perforation or abscess without bleeding; K64.8 Other hemorrhoids; I25.10 Atherosclerotic heart disease of native coronary artery without angina pectoris; I10 Essential (primary) hypertension; E66.01 Morbid (severe) obesity due to excess calories; Z68.36 Body mass index [BMI] 36.0-36.9, adult
CPT/HCPCS: 43239; 45380; 45385; 81025; 84703; 88305; J2704; J7030

== ENCOUNTER 2024-01-20 06:37 | Day surgery (SDC) | payer OTHER, SELFPAY ==
[2024-01-20] VITALS (16 sets, daily range): BP systolic 112–187; BP diastolic 6–107; PULSE 64–102; RESP 13–21; TEMP 36.1–36.4; O2SAT 92–99; BMI 37.5
--- NOTE | 2024-01-20 07:01 | W.PM.OPSUD ---
Surgery/Procedure H&P Update DATE OF PROCEDURE: January 20, 2024 DATE H&P PERFORMED: 01/03/24 H&P UPDATE INFORMATION: I have reviewed H&P completed within last 30 days, I have examined patient prior to procedure and No changes to prior documentation PLANNED PROCEDURE: Operation Date: 01/20/24 08:20 Proposed Procedures p Laparoscopic Umbilical Hernia Repair with mesh(Not Applicable) - Hermilo Caro DO
[2024-01-20] MEDS: sodium chloride 0.9% 1,000 ML 30 ML IV (07:05)
--- NOTE | 2024-01-20 07:18 | ANES.PREANE2 ---
Pre-Anesthetic Assessment Height/Weight: Height 1.7 m Weight 108.862 kg Operation Date: 01/20/24 08:20 Proposed Procedures p Laparoscopic Umbilical Hernia Repair with mesh(Not Applicable) - Hermilo Caro DO Social Tobacco 1 ppd x 30 years plus pack(s) per day Exam alert, oriented x 3 and regular rate & rhythm minimal exp wheezes Airway Submandibular: within normal limits Cervical ROM: within normal limits Mallampati: Class I Dentition: full Pulmonary Chronic Obstructive Pulmonary Disease None reported Hepatic None reported Anesthetic Plan Anesthesia: General Risk of > 500 ml blood loss (7ml/kg in children): No Medications/Allergies Home Medications Medication Instructions Recorded Confirmed Last Taken Type folic acid 1 mg tablet 1 mg PO DAILY #30 tabs 09/24/23 01/19/24 01/19/24 Rx multivitamin with folic acid 400 1 tab PO DAILY #30 tabs 09/24/23 01/19/24 01/19/24 Rx mcg tablet (Thera) thiamine mononitrate (vit B1) 100 100 mg PO DAILY #30 tabs 09/24/23 01/19/24 Unknown Rx mg tablet (Vitamin B-1 (mononitrate)) pantoprazole 40 mg tablet,delayed 40 mg PO BID 6 weeks #84 tabs 11/22/23 01/19/24 01/19/24 Rx release (Protonix) sucralfate 1 gram tablet 1 g PO QID 12/06/23 01/19/24 01/19/24 History acetaminophen 325 mg tablet 325 mg PO PRN PRN Pain 01/19/24 01/19/24 01/19/24 History (Tylenol) gabapentin 300 mg capsule 300 mg PO TID #90 caps 01/19/24 Unknown Rx Allergies Allergy/AdvReac Type Severity Reaction Status Date / Time No Known Allergies Allergy Verified 01/19/24 10:17 Current Medications Generic Name Dose Route Start Last Admin Trade Name Freq PRN Reason Stop Dose Admin Sodium Chloride 1,000 mls @ 30 mls/hr 01/20/24 07:00 01/20/24 07:05 Sodium Chloride 0.9% IV 01/21/24 06:59 30 mls/hr .Q24H BHARTI Administration Data Anesthesia Cardiac Studies: No Data to Display
[2024-01-20] MEDS: ceFAZolin 2,000 MG in sodium chloride 0.9% (plus) 50 ML 100 MG IV (07:41)
[2024-01-20] MEDS: lidocaine-epi 2% PF 1:200,000 20 mL SDV XX (08:15)
--- NOTE | 2024-01-20 08:33 | PM.OP ---
Operative Report Date of procedure: January 20, 2024 Pre-op diagnosis: Umbilical hernia Post-op diagnosis: same Procedure done: Laparoscopic repair of umbilical herniaLeft breast lumpectomy with needle insertion and radiologic correlation and sentinel lymph node biopsy (measuring 3.4 cm in diameter) with mesh Implants: 6 inch round Ventralight mesh Specimens removed/disposition: None Surgeon: Hermilo Caro DO Anesthesia: General Estimated blood loss (mL): 5 Complications: None apparent Brief History: This is a very pleasant 53-year-old female who presented to my office with a painful and enlarging umbilical hernia. Laparoscopic repair with mesh was indicated. The risk and benefits were explained and documented. Procedure: Patient was wheeled into the operative room and placed on the OR table in a supine position. Abdomen was inspected prepped and draped in usual sterile fashion. Time-out was performed and all present were in agreement. A 15 blade scalp was used to make a 5 millimeter incision left upper quadrant. A Veress needle was placed into the incision and intra-abdominal insufflation was brought to 15 millimeters of mercury. A 12 millimeter trocar was placed into the left lower quadrant. There is a very significant amount of omental fat in the umbilical hernia. The energy but device was then used to cut out the hernia sac. The sac came down attached to the omentum and I elected to leave the sac with the omentum inside the abdomen. Hernia defect measured 3.4 cm in greatest diameter. A 6 inch ventral light mesh was placed into the abdomen and brought up through the umbilicus using an the Vern-Gene. The mesh was then tacked in place in a double crown fashion. The skeleton of the mesh was removed via the left lower quadrant. The hernia sac was then removed from the abdomen via the left lower quadrant. The left lower quadrant port site was closed with an 0 Vicryl suture in a Vern-Gene in a [id number] fashion. Incisions were closed with 4-0 Monocryl in a subcuticular interrupted fashion. Skin glue was applied. A dressing that included cotton balls and a Tegaderm was placed over the umbilicus. Patient tolerated the procedure well.
[2024-01-20] MEDS: fentaNYL 50 mcg/mL INJ 2mL IVP ×2 (08:40→08:53)
[2024-01-20] MEDS: HYDROmorphone 1 mg/mL INJ 1 mL 0.5 MG IVP (09:05)
[2024-01-20] MEDS: morphine 4 mg/mL SDV 1 mL IVP (09:38)
[2024-01-20] MEDS: HYDROcodone-acetaminophen 7.5-325 mg Tablet 1 TAB PO (10:04)
--- NOTE | 2024-01-20 13:57 | ANE.PACU2 ---
Inpatient post-anesthesia follow up: Vital signs: Temperature 97.4 F Pulse Rate 76 Respiratory Rate 18 Blood Pressure 145/89 Pulse Oximetry 95 Oxygen Delivery Me thod Room Air Oxygen Flow Rate 6 Fraction of Inspir ed Oxygen Hydration adequate: Yes Nausea and vomiting: No Mental status: Baseline Additional Comments: no apparent anesthetic comlications noted
== END 2024-01-20 10:20 | disposition home or self-care (01) ==
PROVIDERS: PCP Nurse Practitioner Family; Visit Provider Surgery
PROC: 0WQF4ZZ Repair Abdominal Wall, Percutaneous Endoscopic Approach (ICD-10-PCS; CPT 49593; principal; 2024-01-20 08:10)
DX: K42.9 Umbilical hernia without obstruction or gangrene (principal); J44.9 Chronic obstructive pulmonary disease, unspecified; F17.200 Nicotine dependence, unspecified, uncomplicated
CPT/HCPCS: 49593; J0690; J1100; J1170; J2250; J2270; J2405; J2704; J2710; J3010; J3490; J7030

== ENCOUNTER 2024-03-01 15:14 | Outpatient (CLI) | payer OTHER, SELFPAY ==
--- NOTE | 2024-03-01 15:22 | CT_ITS ---
WS: [id number] LDCT LUNG CANCER SCREENING HISTORY: HX OF TOBACCO USE TECHNIQUE: Axial imaging performed from the apices to 1 cm below the costophrenic angles. Coronal and sagittal reformats are submitted with axial MIP series. All CT scans at [facility] use at least one of these dose optimization techniques: automated exposure control; mA and/or kV adjustment per patient size (includes targeted exams where dose is matched to clinical indication); or iterativ e reconstruction. DLP: 144.91 mGy.cm DIvol: Mean CTDIvol: 3.50 (mGy) COMPARISON: None available. Diagnostic quality: Satisfactory Lungs: No pulmonary mass or nodule. No endobronchial lesions or groundglass lesions. Heart: Normal size heart with no pericardial effusion.. Other findings: Mild atherosclerosis aorta. No adenopathy identified. Small hiatal hernia. Mild thora cic spondylosis. CT/CT lung screening [id number] IMPRESSION: LUNG-RADS: 1-Negative FOLLOW UP: 12 Month: Continue annual screening with LDCT OTHER FINDINGS (S MODIFIER): None.
== END 2024-03-01 15:15 | disposition home or self-care (01) ==
PROVIDERS: PCP Nurse Practitioner Family; Visit Provider Anesthesiology Pain Medicine
DX: Z12.2 Encounter for screening for malignant neoplasm of respiratory organs (principal); Z87.891 Personal history of nicotine dependence
CPT/HCPCS: 71271

== ENCOUNTER 2024-03-01 15:15 | Outpatient (CLI) | payer OTHER, SELFPAY ==
--- NOTE | 2024-03-01 16:00 | MR_ITS ---
WS: [id number] MRI LUMBAR SPINE NONCONTRAST HISTORY: M54.16 - Radiculopathy, lumbar region COMPARISON: None available. TECHNIQUE: Sagittal and axial multisequence imaging is submitted. Mild spondylitic changes in the mid thoracic spine. Mild increase in lumbar lordosis and mild curvature. Mild desiccation of the disc spaces. Moderate size anterior osteophytes most significant at L1-2. Mil d reactive marrow edema at L1-2 and the anterior vertebral bodies. No fractures. Conus terminates normally at L1-2 disc level. L1-L2: Mild annular disc bulge with a central disc protrusion deforming the ventral thecal sac. Mild encroachment upon the subarticular recesses. Mild facet arthritis. No foraminal stenosis. Mild centra l stenosis. L2-L3: Mild annular disc bulging. Shallow LEFT foraminal disc protrusion and osteophytosis. Mild face t arthritis. Mild central, bilateral subarticular recess and LEFT foraminal stenosis. No RIGHT forami nal stenosis. Slightly greater encroachment upon the LEFT L2 and L3 nerve roots. L3-L4: Mild annular disc bulging with a LEFT foraminal disc protrusion, ligamentum flavum and facet a rthritis. Moderate central, bilateral subarticular recess and LEFT foraminal stenosis. There is disc contacting the LEFT L3 exiting nerve root. L4-L5: Moderate facet arthritis. Mild disc bulging. Vertebral body osteophytes. Moderate central with bilateral subarticular recess and mild foraminal stenosis. L5-S1: Mild disc bulging and mild facet arthritis. Mild bilateral foraminal stenosis. Paravertebral soft tissues are negative. MR/MR lumbar spine wo con* [id number] IMPRESSION: 1. Multilevel areas of central and foraminal stenosis due to combination of di sc disease, disc protrusions, osteophytes and facet disease. 2. L4-5: Moderate central with bilateral subarticular recess and mild foramina l stenosis. 3. L3-4: LEFT foraminal disc protrusion. Moderate central, bilateral subarticu lar recess and LEFT foraminal stenosis. Disc does contact the LEFT L3 exiting n erve root. 4. L2-3: Shallow LEFT foraminal disc protrusion. Mild central, bilateral subar ticular recess and LEFT foraminal stenosis. Disc encroachment upon the LEFT L2 and L3 nerve roots. 5. L1-2: Shallow central disc protrusion. Disc encroachment upon the subarticu lar recesses. Mild central stenosis. 6. L5-S1: Mild foraminal stenosis.
== END 2024-03-01 15:16 | disposition home or self-care (01) ==
LOC: RAD 15:16
PROVIDERS: PCP Nurse Practitioner Family; Visit Provider Nurse Practitioner Family
DX: M54.16 Radiculopathy, lumbar region (principal); M48.061 Spinal stenosis, lumbar region without neurogenic claudication
CPT/HCPCS: 72148

== ENCOUNTER → 2024-05-18 16:16 | Outpatient (BNVA) | payer OTHER, SELFPAY | PROVIDERS: PCP Nurse Practitioner Family; Visit Provider Orthopaedic Surgery | DX: M51.16 Intervertebral disc disorders with radiculopathy, lumbar region (principal); M54.50 Low back pain, unspecified; G89.29 Other chronic pain | CPT/HCPCS: 72110 ==

== ENCOUNTER 2025-01-04 12:53 | Outpatient (CLI) | payer OTHER, SELFPAY ==
[2025-01-04 13:48] LABS: Basophils # 0.1 10^3/uL (0.0-0.1); Basophils % 0.5 %; Eosinophils # 0.2 10^3/uL (0.0-0.8); Hematocrit 37.1 % (36-47); Lymphocytes # 3.4 10^3/uL (0.8-4.8); Lymphocytes % 32.4 %; Mean Corpuscular HGB Conc 32.3 g/dL (30-55); Mean Corpuscular Hemoglobin 28.8 pg (27-33); Mean Platelet Volume 10.3 fL (7.4-10.4); Monocytes # 0.6 10^3/uL (0.2-0.9); Monocytes % 5.7 %; Neutrophils # 6.18 10^3/uL (1.8-7.7); Nucleated Red Blood Cells % 0 %; Platelet Count 379 10^3/cmm (157-399); Red Blood Count 4.17 10^6/uL (3.85-5.65); Red Cell Distribution Width 15.2 % (12.1-15.1); White Blood Count 10.48 10^3/uL (3.29-11.43)
[2025-01-04 14:20] LABS: Estmated Average Glucose 111; Hemoglobin A1C 5.5 % (4.0-6.0)
[2025-01-04 14:21] LABS: Alanine Aminotransferase 26 U/L (0-33); Albumin Level 4.1 g/dL (3.5-5.2); Alkaline Phosphatase 110 U/L (35-105); Anion Gap 14.8 (5-19); Aspartate Amino Transferase 28 U/L (0-32); Blood Urea Nitrogen 10 mg/dL (6-20); Calcium 9.4 mg/dL (8.5-10.5); Carbon Dioxide 26 mmol/L (22-29); Chloride 102 mmol/L (98-107); Chol HDL Ratio 3.47 mg/dL (0.0-4.40); Cholesterol 205 mg/dL (0-200); Globulin 3.5 g/dL (1.3-4.6); Glucose 132 mg/dL (65-115); HDL Cholesterol 59 mg/dL (60-100); LDL Cholesterol Calculated 108 mg/dL (50-129); LDL HDL Ratio 1.83 RATIO (0.00-3.22); Osmolality Calculated 289 mOsm/kg (285-295); Potassium 3.8 mmol/L (3.5-5.1); Sodium 139 mmol/L (136-145); Thyroid Stimulating Hormone 0.64 uIU/mL (0.27-4.20); Total Bilirubin 0.3 mg/dL (0.15-1.2); Total Protein 7.6 g/dL (6.6-8.7); Triglycerides 188 mg/dL (0-150)
== END 2025-01-04 12:54 | disposition home or self-care (01) ==
PROVIDERS: PCP Nurse Practitioner Family; Visit Provider Nurse Practitioner Adult Health
DX: Z00.01 Encounter for general adult medical examination with abnormal findings (principal)
CPT/HCPCS: 36415; 80053; 80061; 83036; 84443; 85025